=== PATIENT | male | born 1995 | race American Indian/Alaskan Native ===

== ENCOUNTER 2017-02-28 18:14 | Emergency (ER) | payer SELFPAY ==
[2017-02-28 18:54] VITALS: BP 106/69
[2017-02-28] MEDS ORDERED: Tetracaine HCl/PF 0.5% 4 ML Bottle EYELF ONE (19:03)
[2017-02-28] MEDS ORDERED: Fluorescein 1 MG Ophth Strip EYELF ONE (19:03)
--- NOTE | 2017-02-28 19:29 | EDM.PDOC ---
ED HPI GENERAL MEDICAL PROBLEM - General Chief Complaint: Eye Problems Stated Complaint: SOMETHING IN EYE [id number] Time Seen by Provider: 02/28/17 19:10 Source of Information: Reports: Patient History Limitations: Reports: No Limitations - History of Present Illness INITIAL COMMENTS - FREE TEXT/NARRATIVE: c/o pain , irritation to left eye since 3pm while sawing board and "got sawdust " in his eye. Wearing only regular glasses. Tried flushing but no relief Left Eye Pain Score (Numeric/FACES): 8 - Related Data Allergies Allergy/AdvReac Type Severity Reaction Status Date / Time No Known Allergies Allergy Verified 02/28/17 18:54 Home Meds: Home Meds . [No Known Home Meds] 02/28/17 [History] Past Medical History - Past Health History Medical/Surgical History: Denies Medical/Surgical History Social & Family History - Tobacco Use Smoking Status *Q: Never Smoker Second Hand Smoke Exposure: No - Recreational Drug Use Recreational Drug Use: No ED ROS GENERAL - Review of Systems Review Of Systems: ROS reveals no pertinent complaints other than HPI. ED EXAM GENERAL W FULL EYE - Physical Exam Exam: See Below Exam Limited By: No Limitations General Appearance: Alert, Moderate Distress Eye Exam: Bilateral Eye: EOMI, PERRL Eyelids: Right: Normal Appearance, Left: Lid Everted for Exam Conjunctiva & Sclera: Left: Injected Cornea Exam: Left: Normal Appearance Extraocular Movements: Bilateral: Intact Pupils: Normal Accommodation Pupillary Size: Bilateral: 5 mm Pupillary Reaction: Bilateral: Brisk Ears: Normal External Exam Nose: Nasal Drainage Throat/Mouth: Normal Voice Neck: Normal Inspection Respiratory/Chest: No Respiratory Distress Neurological: Alert, Oriented, Normal Cognition Psychiatric: Normal Affect Skin Exam: Warm, Dry, Intact, Normal Color ED EYE w/ Add Procedure - Eye Procedure Alcaine Drops Administered: Yes Eye FB Removal: Other (none visulaized) Eye Irrigated w/ Saline (ccs): 10 Antibiotic Oinment/Drps Admin: Left Eye Course - Vital Signs Last Recorded V/S: Last Vital Signs Temp 98.2 F 02/28/17 18:50 Pulse 79 02/28/17 18:50 Resp 18 02/28/17 18:50 BP 106/69 02/28/17 18:50 Pulse Ox 100 02/28/17 18:50 - Orders/Labs/Meds Meds: Medications Discontinued Medications Generic Name Dose Route Start Last Admin Trade Name Leda PRN Reason Stop Dose Admin Fluorescein Sodium 1 mg 02/28/17 19:03 02/28/17 19:08 Ful-Rosetta EYELF 02/28/17 19:04 1 mg ONETIME ONE Administration Tetracaine HCl 1 ml 02/28/17 19:03 02/28/17 19:08 Tetracaine 0.5% Steri-Unit Phyllis EYELF 02/28/17 19:04 1 ml ASDIRECTED ONE Administration Departure - Departure Time of Disposition: 19:29 Disposition: Home, Self-Care 01 Condition: Good Clinical Impression: Foreign body of left eye Qualifiers: Encounter type: initial encounter Qualified Code(s): T15.92XA - Foreign body on external eye, part unspecified, left eye, initial encounter - Discharge Information Instructions: Eye Foreign Body, [id number] Referrals: PCP,None [Primary Care Provider] - Forms: ED Department Discharge Additional Instructions: rest eye, dark glasses gentaycin ointment one half inch left eye 3 times daily x3 days follow up with eye clinic if not improving
== END 2017-02-28 19:37 | disposition home or self-care (01) ==
LOC: DL.ED 18:14
DX: T15.92XA Foreign body on external eye, part unspecified, left eye, initial encounter (principal)
CPT/HCPCS: 99283; A9270

== ENCOUNTER 2019-04-09 23:13 | Emergency (ER) | payer SELFPAY ==
[2019-04-09 23:24] VITALS: BP 114/82; PULSE 93
[2019-04-09] MEDS ORDERED: Lidocaine 1% 30 ML SDV INJECT ONE (23:25)
--- NOTE | 2019-04-09 23:30 | EDM.PDOC ---
ED HPI GENERAL MEDICAL PROBLEM - General Chief Complaint: Laceration Stated Complaint: CUT HAND Time Seen by Provider: 04/09/19 23:25 Source of Information: Reports: Patient History Limitations: Reports: No Limitations - History of Present Illness INITIAL COMMENTS - FREE TEXT/NARRATIVE: accidentally cut hand [employer] Right Finger-Little Pain Score (Numeric/FACES): 3 Right Finger-Ring Pain Score (Numeric/FACES): 3 - Related Data Allergies Allergy/AdvReac Type Severity Reaction Status Date / Time No Known Allergies Allergy Verified 04/09/19 23:26 Home Meds: Home Meds . [No Known Home Meds] 02/28/17 [History] Past Medical History - Past Health History Medical/Surgical History: Denies Medical/Surgical History ED ROS GENERAL - Review of Systems Review Of Systems: Comprehensive ROS is negative, except as noted in HPI. ED EXAM, SKIN/RASH Exam: See Below Exam Limited By: No Limitations General Appearance: Alert, WD/WN, No Apparent Distress Eye Exam: Bilateral Eye: PERRL (pupils ER @ 4mm) Ears: Hearing Grossly Normal Throat/Mouth: Normal Voice, No Airway Compromise Head: Atraumatic Neck: Non-Tender, Full Range of Motion Respiratory/Chest: No Respiratory Distress Cardiovascular: Regular Rate, Rhythm GI/Abdominal: Soft, Non-Tender Extremities: Other (right hand lac over dorsal 4th 5th, NV wnl, ROM wnl, total 2 " length) Neurological: Alert, Oriented, Normal Cognition, Normal Gait, No Motor/Sensory Deficits Psychiatric: Normal Affect, Normal Mood Skin: Warm, Dry, Normal Color Location, Skin: Upper Extremity, Right ED SKIN PROCEDURES - Laceration/Wound Repair Right Hand Appearance: Subcutaneous, Linear, Clean Distal NVT: Neuro & Vascular Intact, No Tendon Injury Anesthetic Type: Local Local Anesthesia - Lidocaine (Xylocaine): 1% Plain Local Anesthetic Volume: 5cc Skin Prep: Chlorhexidine (Hibiciens) Saline Irrigation (cc's): 20 Exploration/Debridement/Repair: Wound Explored, Explored to Base, No Foreign Material Found Closed with: Sutures Lac/Wound length In cm: 4 (dorsal 4th & 5th fingers) Suture Size: 4-0 Suture Type: Nylon, Interrupted Sterile Dressing Applied: Provider Tetanus Status Addressed: Yes Complications: No Course - Vital Signs Last Recorded V/S: Last Vital Signs Temp 36.4 C 04/09/19 23:21 Pulse 93 11/15/19 23:21 Resp 18 04/09/19 23:21 BP 114/82 04/09/19 23:21 Pulse Ox 100 04/09/19 23:21 - Orders/Labs/Meds Meds: Medications Discontinued Medications Generic Name Dose Route Start Last Admin Trade Name Leda PRN Reason Stop Dose Admin Lidocaine HCl 30 ml 04/09/19 23:25 04/09/19 23:30 Xylocaine-Mpf 1% INJECT 04/09/19 23:26 30 ml ONETIME ONE Administration Departure - Departure Time of Disposition: 00:00 Disposition: Home, Self-Care 01 Condition: Good Clinical Impression: Finger laceration Qualifiers: Encounter type: initial encounter Finger: unspecified finger Damage to nail status: without damage Foreign body presence: without foreign body Laterality: right Qualified Code(s): S61.219A - Laceration without foreign body of unspecified finger without damage to nail, initial encounter - Discharge Information Instructions: Sutured Wound Care, [id number] Forms: ED Department Discharge Additional Instructions: 1) keep wound clean dry covered 2) wound check if looks infected 3) suture removal 10 days
== END 2019-04-10 00:04 | disposition home or self-care (01) ==
LOC: DL.ED 23:13
DX: S61.216A Laceration without foreign body of right little finger without damage to nail, initial encounter (principal); S61.214A Laceration without foreign body of right ring finger without damage to nail, initial encounter; W25.XXXA Contact with sharp glass, initial encounter
CPT/HCPCS: 12002; 99282; J2001; 12013

== ENCOUNTER 2020-02-19 18:16 | Emergency (ER) | payer SELFPAY ==
[2020-02-19 18:21] VITALS: BP 112/64; PULSE 98
[2020-02-19] MEDS ORDERED: Sodium Chloride 0.9% 1,000 ML IV ONE (18:42)
--- NOTE | 2020-02-19 18:53 | EDM.PDOCBH ---
ED HPI GENERAL MEDICAL PROBLEM - General Chief Complaint: Drug or Alcohol Abuse Stated Complaint: AMBULANCE Time Seen by Provider: 02/19/20 18:51 Source of Information: Reports: Patient, EMS History Limitations: Reports: No Limitations - History of Present Illness INITIAL COMMENTS - FREE TEXT/NARRATIVE: EMS arrived @ scene of unresponsive pt who woke up after narcan. pt has no c/o presently and feels fine. - Related Data Allergies Allergy/AdvReac Type Severity Reaction Status Date / Time No Known Allergies Allergy Verified 02/19/20 18:28 Home Meds: Home Meds . [No Known Home Meds] 02/28/17 [History] Past Medical History - Past Health History Medical/Surgical History: Denies Medical/Surgical History Social & Family History - Family History Family Medical History: Noncontributory - Tobacco Use Smoking Status *Q: Never Smoker - Caffeine Use Caffeine Use: Reports: Energy Drinks Caffeine Use Comment: occassional - Recreational Drug Use Recreational Drug Use: Yes Drug Use in Last 12 Months: Yes Recreational Drug Type: Reports: Marijuana/Hashish ED ROS GENERAL - Review of Systems Review Of Systems: Comprehensive ROS is negative, except as noted in HPI. ED EXAM, BEHAVIORAL HEALTH - Physical Exam Exam: See Below Exam Limited By: No Limitations General Appearance: Alert, WD/WN, No Apparent Distress Eye Exam: Bilateral Eye: PERRL (pupils ER @ 4mm) Ears: Hearing Grossly Normal Throat/Mouth: Normal Voice, No Airway Compromise Head: Atraumatic Neck: Non-Tender, Full Range of Motion Respiratory/Chest: No Respiratory Distress Cardiovascular: Regular Rate, Rhythm GI/Abdominal: Soft, Non-Tender (Male) Exam: Deferred Rectal (Males) Exam: Deferred Neurological: Alert, Normal Mood/Affect, Normal Cognition, No Motor/Sensory Deficits, Oriented x 3 Psychiatric: Alert, Normal Affect, Normal Cognition, Normal Mood, Oriented Skin Exam: Warm, Dry, Normal color COURSE, BEHAVIORAL HEALTH COMP - Course Vital Signs: Last Vital Signs Temp 36.7 C 02/19/20 18:20 Pulse 98 02/19/20 18:20 Resp 15 02/19/20 18:20 BP 112/64 02/19/20 18:20 Pulse Ox 97 02/19/20 18:20 Orders, Labs, Meds: Laboratory Tests 09/26/20 09/26/20 09/26/20 Range/Units 18:50 18:50 19:35 WBC 12.3 H (5.0-10.0) 10^3/uL RBC 4.69 (4.6-6.2) 10^6/uL Hgb 14.4 (14.0-18.0) g/dL Hct 42.9 (40.0-54.0) % MCV 91.5 (80-100) fL MCH 30.7 (27.0-34.0) pg MCHC 33.6 (33.0-35.0) g/dL Plt Count 277 (150-450) 10^3/uL Neut % (Auto) 84.8 H (42.2-75.2) % Lymph % (Auto) 9.0 L (20.5-50.1) % [place] % (Auto) 5.2 (2-8) % Eos % (Auto) 0.8 L (1.0-3.0) % Baso % (Auto) 0.2 (0.0-1.0) % Sodium 142 (136-145) mmol/L Potassium 4.1 (3.5-5.1) mmol/L Chloride 105 (98-107) mmol/L Carbon Dioxide 30 (21-32) mmol/L Anion Gap 11.1 (7-13) mEq/L BUN 21 H (7-18) mg/dL Creatinine 1.08 (0.70-1.30) mg/dL Est Cr Clr Drug Dosing 109.84 mL/min Estimated GFR (MDRD) > 60 BUN/Creatinine Ratio 19.4 (No establ ref range) Glucose 139 H (74-99) mg/dL Calcium 8.6 (8.5-10.1) mg/dL Total Bilirubin 0.3 (0.2-1.0) mg/dL AST 13 L (15-37) U/L ALT 20 (16-63) U/L Alkaline Phosphatase 112 (46-116) U/L Total Protein 7.7 (6.4-8.2) g/dL Albumin 4.2 (3.4-5.0) g/dL Globulin 3.5 Albumin/Globulin Ratio 1.2 Urine Opiates Screen Negative (NEGATIVE) Ur Oxycodone Screen Negative (NEGATIVE) Urine Methadone Screen Negative (NEGATIVE) Ur Barbiturates Screen Negative (NEGATIVE) U Tricyclic Antidepress Negative (NEGATIVE) Ur Phencyclidine Scrn Negative (NEGATIVE) Ur Amphetamine Screen Negative (NEGATIVE) U Methamphetamines Scrn Negative (NEGATIVE) Urine MDMA Screen Negative (NEGATIVE) U Benzodiazepines Scrn Negative (NEGATIVE) Urine Cocaine Screen Negative (NEGATIVE) U Marijuana (THC) Screen Positive H (NEGATIVE) Ethyl Alcohol < 3 (0) mg/dL Medications Discontinued Medications Generic Name Dose Route Start Last Admin Trade Name Freq PRN Reason Stop Dose Admin Sodium Chloride 1,000 mls @ 999 mls/hr 02/19/20 18:42 02/19/20 18:54 Normal Saline IV 02/19/20 19:42 999 mls/hr .BOLUS ONE Administration Re-Assessment/Re-Exam: results discussed with pt who is feeling fine and wants to go home. Departure - Departure Time of Disposition: 20:07 Disposition: Home, Self-Care 01 Condition: Good Clinical Impression: Drug reaction Qualifiers: Encounter type: initial encounter Qualified Code(s): T50.905A - Adverse effect of unspecified drugs, medicaments and biological substances, initial encounter - Discharge Information Forms: ED Department Discharge Additional Instructions: 1) recheck if there is any change or concern Sepsis Event Note (ED) - Evaluation Sepsis Screening Result: No Definite Risk - Focused Exam Vital Signs: Vital Signs Temp Pulse Resp BP Pulse Ox 02/19/20 18:20 36.7 C 98 15 112/64 97
[2020-02-19 19:16] LABS: ANION GAP 11.1 mEq/L (7-13); CHLORIDE,CL 105 mmol/L (98-107); SODIUM,NA 142 mmol/L (136-145)
== END 2020-02-19 20:28 | disposition home or self-care (01) ==
LOC: DL.ED 18:16
DX: R40.1 Stupor (principal); R51 Headache; T40.7X5A Adverse effect of cannabis (derivatives), initial encounter
CPT/HCPCS: 36415; 80053; 80305; 80307; 85025; 96360; 99285; J7030; 99283

== ENCOUNTER 2021-12-17 19:22 | Emergency (ER) | payer MEDICAID, OTHER ==
[2021-12-17] MEDS ORDERED: Lidocaine 1% 5 ML VIAL INJECT ONE (19:41)
[2021-12-17] MEDS ORDERED: Ketorolac 30 MG/ML SDV IVPUSH ONE (19:42)
[2021-12-17] MEDS ORDERED: Bacitracin Oint 1 GM U/D Packet TOP ONE (19:42)
[2021-12-17] MEDS ORDERED: cefTRIAXone 1 GM in Sodium Chloride 0.9% 50 ML IV ONE (19:42)
[2021-12-17 20:46] VITALS: BP 112/70; PULSE 82
== END 2021-12-17 21:20 | disposition home or self-care (01) ==
LOC: DL.ED 19:22
DX: S62.661B Nondisplaced fracture of distal phalanx of left index finger, initial encounter for open fracture (principal); F17.210 Nicotine dependence, cigarettes, uncomplicated; Z86.16 Personal history of COVID-19; X58.XXXA Exposure to other specified factors, initial encounter
CPT/HCPCS: 12001; 73140; 96365; 96375; 99282; 99283; J0696; J1885